=== PATIENT | male | born 1945 | race Caucasian/White ===

== ENCOUNTER → 2020-07-05 | Outpatient (CLI) | payer MEDICARE | LOC: MRI 08:53 | DX: C61 Malignant neoplasm of prostate (principal); C79.51 Secondary malignant neoplasm of bone; M51.36 Other intervertebral disc degeneration, lumbar region; M51.37 Other intervertebral disc degeneration, lumbosacral region | CPT/HCPCS: 36415; 72157; 72158; 82565; A9577 ==

== ENCOUNTER → 2020-11-01 | Outpatient (CLI) | payer MEDICARE | LOC: CT 11:37 | DX: C61 Malignant neoplasm of prostate (principal); R91.1 Solitary pulmonary nodule; N62 Hypertrophy of breast; C79.51 Secondary malignant neoplasm of bone; K59.00 Constipation, unspecified; K57.90 Diverticulosis of intestine, part unspecified, without perforation or abscess without bleeding | CPT/HCPCS: 36415; 71260; 82565; Q9967 ==

== ENCOUNTER → 2020-11-09 | Outpatient (CLI) | payer MEDICARE | LOC: NM 07:59 | DX: C61 Malignant neoplasm of prostate (principal) | CPT/HCPCS: 78306; A9503 ==

== ENCOUNTER 2021-02-01 12:09 | Emergency (ER) | payer MEDICARE ==
[~2021-02-01] VITALS: Ht 172.7 cm; Wt 97.1 kg
== END 2021-02-01 15:27 | disposition home or self-care (01) ==
LOC: ER1 12:09
DX: U07.1 COVID-19 (principal); Z23 Encounter for immunization
CPT/HCPCS: 99284; M0243

== ENCOUNTER 2021-02-06 13:46 | Emergency (ER) | payer MEDICARE ==
[2021-02-06 15:09] LABS: HEMOGLOBIN 13.4 gm/dl (14.0-17.5); RED BLOOD COUNT 4.6 M/UL (4.20-5.50); WHITE BLOOD COUNT 7.1 K/UL (4.5-11.0)
[2021-02-06 15:23] LABS: BUN/CREATININE RATIO 17 (0-10)
== END 2021-02-06 16:30 | disposition home or self-care (01) ==
LOC: ER1 13:46
PROVIDERS: Emergency Medicine
DX: U07.1 COVID-19 (principal); R55 Syncope and collapse; E11.9 Type 2 diabetes mellitus without complications; I10 Essential (primary) hypertension; E03.9 Hypothyroidism, unspecified; Z79.82 Long term (current) use of aspirin
CPT/HCPCS: 70450; 71045; 80053; 81001; 82550; 82553; 83874; 84484; 85025; 85610; 99284; U0002

== ENCOUNTER → 2021-05-18 | Outpatient (CLI) | payer MEDICARE | LOC: NM 04-28 08:10 → CT 04-28 15:00 → NM 05-09 09:30 → CT 08:45 | DX: C61 Malignant neoplasm of prostate (principal); C79.51 Secondary malignant neoplasm of bone; R91.1 Solitary pulmonary nodule | CPT/HCPCS: 36415; 71260; 78306; 82565; A9503; Q9967 ==

== ENCOUNTER 2021-07-25 16:22 | Emergency (ER) | payer MEDICARE ==
[2021-07-25 18:40] LABS: RED BLOOD COUNT 4.73 M/UL (4.20-5.50)
[2021-07-25 19:10] LABS: BUN/CREATININE RATIO 18 (0-10)
[2021-07-25] MEDS ORDERED: PROVENTIL HFA6.7 GM INH (21:08)
== END 2021-07-25 21:35 | disposition home or self-care (01) ==
LOC: ER1 16:22
PROVIDERS: Emergency Medicine
DX: J20.9 Acute bronchitis, unspecified (principal); Z20.822 Contact with and (suspected) exposure to COVID-19; I10 Essential (primary) hypertension; E11.9 Type 2 diabetes mellitus without complications; Z85.46 Personal history of malignant neoplasm of prostate
CPT/HCPCS: 0240U; 71045; 80053; 82550; 82553; 83880; 84484; 85025; 93005; 99285

== ENCOUNTER → 2021-08-18 | Outpatient (CLI) | payer MEDICARE ==
[~2021-08-18] MED LIST: PROVENTIL HFA6.7 GM INH
== END ==
LOC: RAD 12:00
DX: R22.31 Localized swelling, mass and lump, right upper limb (principal); M79.89 Other specified soft tissue disorders
CPT/HCPCS: 73110

== ENCOUNTER → 2021-08-24 | Outpatient (CLI) | payer MEDICARE | LOC: KOH-I 13:48 | DX: M25.531 Pain in right wrist (principal); M25.831 Other specified joint disorders, right wrist | CPT/HCPCS: 73221 ==

== ENCOUNTER 2021-09-15 22:46 | Observation (INO) | payer MEDICARE ==
[~2021-09-15] VITALS: Ht 172.7 cm; Wt 95.3 kg
[2021-09-16] LABS: HEMOGLOBIN 13.9 gm/dl (14.0-17.5); RED BLOOD COUNT 4.76 M/UL (4.20-5.50); WHITE BLOOD COUNT 7.4 K/UL (4.5-11.0)
[2021-09-16 00:41] LABS: BUN/CREATININE RATIO 18 (0-10)
[2021-09-16 04:21] LABS: BUN/CREATININE RATIO 21 (0-10)
[2021-09-16 04:52] LABS: HEMOGLOBIN 13.3 gm/dl (14.0-17.5); RED BLOOD COUNT 4.53 M/UL (4.20-5.50); WHITE BLOOD COUNT 7.8 K/UL (4.5-11.0)
[2021-09-16] MEDS ORDERED: HUMALOG100 UNIT/3 SQ (09:28)
[2021-09-16] MEDS ORDERED: METFORMIN HCL1000 MG PO (09:29)
[2021-09-16] MEDS ORDERED: LANTUS SOL100 UNIT/1 SQ (09:29)
[2021-09-16] MEDS ORDERED: IRBESARTAN150 MG PO (09:29)
[2021-09-16] MEDS ORDERED: XTANDI40 M1 PO (09:29)
[2021-09-16] MEDS ORDERED: JARDIANCE25 MG PO (09:30)
[2021-09-16] MEDS ORDERED: ZOCOR 40 MG TAB40 MG PO (09:30)
[2021-09-16] MEDS ORDERED: ASMANEX HFA13 G2 INH (09:30)
[2021-09-16] MEDS ORDERED: FLOMAX 0.4 MG0.4 MG PO (09:30)
[2021-09-16] MEDS ORDERED: ATENOLOL25 MG PO (09:30)
[2021-09-16] MEDS ORDERED: ASPIRIN EC81 MG PO (09:31)
[2021-09-16] MEDS ORDERED: ZYRTEC10 MG PO (09:31)
== END 2021-09-16 14:55 | disposition home or self-care (01) ==
LOC: ER1 22:46 → CDU 09-16 01:16 → M/S 09-16 01:16
PROVIDERS: Physician Assistant Medical; ADMIT Internal Medicine
DX: R07.89 Other chest pain (principal); C61 Malignant neoplasm of prostate; C79.51 Secondary malignant neoplasm of bone; I10 Essential (primary) hypertension; E78.5 Hyperlipidemia, unspecified; E11.9 Type 2 diabetes mellitus without complications; H54.8 Legal blindness, as defined in USA; H35.30 Unspecified macular degeneration; Z79.890 Hormone replacement therapy; Z79.4 Long term (current) use of insulin; Z79.82 Long term (current) use of aspirin; Z79.84 Long term (current) use of oral hypoglycemic drugs; Z79.899 Other long term (current) drug therapy
CPT/HCPCS: ECHO; 36415; 71045; 80053; 82550; 82553; 82962; 83036; 83735; 83880; 84439; 84443; 84484; 85025; 93005; 93306; 99285; G0378; J1644

== ENCOUNTER → 2021-09-20 | Outpatient (CLI) | payer MEDICARE ==
[~2021-09-20] MED LIST changes: +ASMANEX HFA13 G2 INH; +ASPIRIN EC81 MG PO; +ATENOLOL25 MG PO; +FLOMAX 0.4 MG0.4 MG PO; +HUMALOG100 UNIT/3 SQ; +IRBESARTAN150 MG PO; +JARDIANCE25 MG PO; +LANTUS SOL100 UNIT/1 SQ; +METFORMIN HCL1000 MG PO; +XTANDI40 M1 PO; +ZOCOR 40 MG TAB40 MG PO; +ZYRTEC10 MG PO
== END ==
LOC: CT 12:50
DX: C61 Malignant neoplasm of prostate (principal)
CPT/HCPCS: 71260; Q9967